=== PATIENT | female | born 1945 | race Two or more races ===

== ENCOUNTER → 2024-03-22 | Outpatient (CLI) | payer OTHER, SELFPAY ==
[2024-03-22 08:51] LABS: Glucose Estimated Average 131 mg/dL (80-131); Hemoglobin A1C 6.2 % Hgb (4.8-6.0)
[2024-03-22 09:07] LABS: Cardiac Risk Estimate 4.2 RATIO (3.7-5.6); Cholesterol 208 mg/dL (132-200); HDL Cholesterol 49 mg/dL (40-60); LDL Cholesterol,Calculated 145 mg/dL (0-130); Triglycerides 70 mg/dL (30-150)
== END | disposition home or self-care (01) ==
LOC: COPL 07:56
PROVIDERS: PCP Family Medicine; Referring Provider Family Medicine; Visit Provider Family Medicine
DX: E11.65 Type 2 diabetes mellitus with hyperglycemia (principal); E78.2 Mixed hyperlipidemia
CPT/HCPCS: 36415; 80061; 83036

== ENCOUNTER → 2024-04-15 | Outpatient (CLI) | payer OTHER, SELFPAY ==
[2024-04-15 10:22] LABS: Alanine Aminotransferase 34 U/L (10-49); Albumin, Serum 4.2 gm/dL (3.4-4.8); Alkaline Phosphatase 63 U/L (46-116); Aspartate Amino Transferase 25 U/L (0-34); Bilirubin,Direct 0.2 mg/dL (0.0-0.3); Bilirubin,Total 0.5 mg/dL (0.3-1.2); Total Protein 6.6 gm/dL (5.7-8.2)
== END | disposition home or self-care (01) ==
LOC: COPL 08:14
PROVIDERS: PCP Family Medicine; Referring Provider Podiatrist Foot & Ankle Surgery; Visit Provider Podiatrist Foot & Ankle Surgery
DX: B35.1 Tinea unguium (principal); B35.3 Tinea pedis
CPT/HCPCS: 36415; 80076

== ENCOUNTER → 2024-06-28 | Outpatient (CLI) | payer OTHER, MEDICAID, SELFPAY ==
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
== END | disposition home or self-care (01) ==
PROVIDERS: PCP Family Medicine; Referring Provider Family Medicine; Visit Provider Family Medicine
DX: R07.89 Other chest pain (principal)
CPT/HCPCS: 71046

== ENCOUNTER → 2024-07-12 | Outpatient (CLI) | payer MEDICARE, MEDICAID, SELFPAY ==
[2024-07-12 10:02] LABS: Glucose Estimated Average 134 mg/dL (80-131); Hemoglobin A1C 6.3 % Hgb (4.8-6.0)
== END | disposition home or self-care (01) ==
LOC: COPL 09:02
PROVIDERS: PCP Family Medicine; Referring Provider Family Medicine; Visit Provider Family Medicine
DX: E11.42 Type 2 diabetes mellitus with diabetic polyneuropathy (principal)
CPT/HCPCS: 36415; 83036

== ENCOUNTER → 2024-09-13 | Outpatient (CLI) | payer MEDICARE, MEDICAID, SELFPAY ==
[2024-09-13 10:28] LABS: Glucose Estimated Average 137 mg/dL (80-131); Hemoglobin A1C 6.4 % Hgb (4.8-6.0)
[2024-09-13 10:34] LABS: Alanine Aminotransferase 42 U/L (10-49); Albumin, Serum 4.4 gm/dL (3.4-4.8); Albumin/Globulin Ratio 1.6 (1.2-2.2); Alkaline Phosphatase 63 U/L (46-116); Anion Gap 9 (7-16); Aspartate Amino Transferase 35 U/L (0-34); BUN/Creatinine Ratio 18 Ratio (12-20); Bilirubin,Total 0.6 mg/dL (0.3-1.2); Blood Urea Nitrogen 22 mg/dL (9-23); Calcium 10.3 mg/dL (8.3-10.6); Calcium (Corrected) 10.3 mg/dL (8.5-10.1); Carbon Dioxide 29.3 mMol/L (20.0-31.0); Cardiac Risk Estimate 3.6 RATIO (3.7-5.6); Chloride 102 mMol/L (98-107); Cholesterol 109 mg/dL (132-200); Creatinine (Component) 1.2 mg/dL (0.6-1.3); Globulin 2.7 gm/dL (2.3-3.5); Glucose 130 mg/dL (74-106); HDL Cholesterol 30 mg/dL (40-60); LDL Cholesterol,Calculated 33 mg/dL (0-130); Osmolality,Calculated 284 (275-295); Potassium 4.1 mMol/L (3.4-5.1); Sodium 140 mMol/L (136-145); Total Protein 7.1 gm/dL (5.7-8.2); Triglycerides 230 mg/dL (30-150); eGFR 46 See Note
== END | disposition home or self-care (01) ==
LOC: COPL 09:03
PROVIDERS: PCP Family Medicine; Referring Provider Family Medicine; Visit Provider Family Medicine
DX: E11.65 Type 2 diabetes mellitus with hyperglycemia (principal); E78.2 Mixed hyperlipidemia
CPT/HCPCS: 36415; 80053; 80061; 83036

== ENCOUNTER 2024-09-20 11:39 | Emergency (ER) | payer OTHER, MEDICAID, SELFPAY ==
[2024-09-20 11:55] VITALS: BP 146/77; PULSE 78; RESP 16; TEMP 37.3; O2SAT 96; BMI 33.6
--- NOTE | 2024-09-20 12:22 | PD.EDSKIN ---
ED Skin Abcess FB-RME/HPI General Chief complaint: Skin/Abscess/Foreign Body Stated complaint: 3 days abscess by vagina Time Seen by Provider: 09/20/24 12:13 Arrival date/time: 09/20/24 11:39 This is a 78-year-old female that is brought in by family member with complaints of possible abscess to the outside of vaginal area. Patient states she has had a small lesion there. Patient states that she started noticing 3 days ago that it started draining. Patient denies any fever or chills. Patient denies any other complaints. Related Data Home Medications ?Medication ?Instructions ?Recorded ?Confirmed gabapentin 300 mg capsule 300 mg PO QDAY 04/07/23 04/07/23 gemfibrozil 600 mg tablet 600 mg PO BID 04/07/23 04/07/23 hydrochlorothiazide 25 mg tablet 25 mg PO QDAY 04/07/23 04/07/23 loratadine 10 mg tablet 10 mg PO QDAY 04/07/23 04/07/23 (Allerclear) losartan 50 mg tablet 50 mg PO QDAY 04/07/23 04/07/23 metoprolol succinate 100 mg 100 mg PO QDAY 04/07/23 04/07/23 tablet,extended release 24 hr tizanidine 4 mg tablet 4 mg PO Q8H PRN Muscle Spasm 04/07/23 04/07/23 tramadol 50 mg tablet 50 mg PO QDAY PRN Pain 04/07/23 04/07/23 Previous Rx's ?Medication ?Instructions ?Recorded doxycycline hyclate 100 mg tablet 100 mg PO BID #14 tabs 09/20/24 Allergies Allergy/AdvReac Type Severity Reaction Status Date / Time celecoxib Allergy Mild Nausea/Vomi Verified 09/20/24 11:44 tiing codeine phosphate Allergy Mild Nausea/Vomi Verified 09/20/24 11:44 tiing hydrocodone bit Allergy Mild Nausea/Vomi Verified 09/20/24 11:44 tiing ibuprofen Allergy Mild Hives Verified 09/20/24 11:44 Course Orders Category Date Time Status Doxycycline [Vibramycin] Med 09/20/24 12:29 Once 100 mg PO X1 ONE Ondansetron Odt [Zofran Odt] Med 09/20/24 12:29 Once 4 mg PO X1 ONE Vital Signs Vital signs: Vital Signs Temperature 99.1 F 09/20/24 11:55 Pulse Rate 78 09/20/24 11:55 Respiratory Rate 16 09/20/24 11:55 Blood Pressure 146/77 H 09/20/24 11:55 Pulse Oximetry (%) 96 09/20/24 11:55 Oxygen Delivery Method Room Air 09/20/24 11:55 Skin / Abscess / Foreign Body MDM Narrative MDM Narrative:: Patient has an area on right side of labia majora. area is approx 0.5cmx0.5cm. Mild erythema to the area no fluctuance felt. Patient had toilet paper in the area to help with the draining. Because area is already draining could have been a small abscess. Again no fluctuance felt. No induration felt. Small area had some mild erythema. Will treat with doxycycline. I told patient to use warm compresses to area every 4 hours. Patient is to follow-up with primary provider in 1 to 2 days. Come back to the emergency room if symptoms change or worsen. Medications / Prescriptions Medication administrations:: Medication Administration History Doxycycline Hyclate (Doxycycline 100 Mg Tablet) 100 mg PO X1 ONE Stop: 09/20/24 12:30 Ondansetron HCl (Ondansetron Odt 4 Mg Tabrap) 4 mg PO X1 ONE; Protocol Stop: 09/20/24 12:30 Discharge Plan Plan Patient Disposition: HOME (Self Care) Patient condition on transfer: Stable Prescriptions/Referrals Prescriptions/Med Rec: New doxycycline hyclate 100 mg tablet 100 mg PO BID Qty: 14 0RF No Action losartan 50 mg tablet 50 mg PO QDAY Patient Comments: TAKE 1 TABLET BY MOUTH EVERY DAY tizanidine 4 mg Tablet 4 mg PO Q8H PRN (Reason: Muscle Spasm) metoprolol succinate 100 mg tablet extended release 24 hr 100 mg PO QDAY Patient Comments: TAKE 1 TABLET BY MOUTH EVERY DAY tramadol 50 mg tablet 50 mg PO QDAY PRN (Reason: Pain) Patient Comments: TAKE 1 TABLET BY MOUTH EVERY 6 HOURS NEEDED gemfibrozil 600 mg tablet 600 mg PO BID Patient Comments: TAKE 1 TABLET BY MOUTH TWICE A DAY gabapentin 300 mg capsule 300 mg PO QDAY Patient Comments: TAKE 1 CAPSULE BY MOUTH THREE TIMES A DAY hydrochlorothiazide 25 mg tablet 25 mg PO QDAY Patient Comments: TAKE 1 TABLET BY MOUTH EVERY DAY loratadine [Allerclear] 10 mg Tablet 10 mg PO QDAY Problem List Clinical Impression: Cellulitis Patient/Caregiver Discharge Instructions Discharge Activity: activity as tolerated Education Materials: ED Cellulitis Additional Instructions: [place] un lance con jauregui medico de cabecera en las proximas 24-48 horas. Regrese a la kevin de emergencias si hay evidencia de que los signos o sintomas empeoran. Print Language: Tunisian Stand Alone Forms: [facility] Award Info., Patient Portal Info Letter PA/[employer] Supervising Physician PA/[employer] Supervising Physician: [email or web address]
[2024-09-20] MEDS: DOXYCYCLINE 100 MG TABLET PO (12:37)
[2024-09-20] MEDS: ONDANSETRON ODT 4 MG TABRAP PO (12:37)
== END 2024-09-20 12:38 | disposition home or self-care (01) ==
PROVIDERS: Emergency Provider Family Medicine; PCP Family Medicine
DX: N76.2 Acute vulvitis (principal)
CPT/HCPCS: 99282; Q0162; A9270

== ENCOUNTER → 2024-10-09 | Outpatient (CLI) | payer MEDICARE, MEDICAID, SELFPAY ==
--- NOTE | 2024-10-09 14:00 | XR_ITS ---
Examination: Screening digital mammography, bilateral Computer aided detection 3-D breast Tomosynthesis, bilateral Date and time of exam: October 09, 2024 1317 hours Compared to mammograms dating to August 06, 2014 Indication: Screening Technique: Nonmagnified MLO, CC views of the breasts to been obtained, reconstructed from 3-D Tomosynthesis images. R2 computer aided detection program utilized for evaluation of suspicious masses and/or abnormal calcifications. 3-D Tomosynthesis images obtained. Findings: The breasts are heterogeneously dense, which may obscure small masses The breast architecture is nodular although definite suspicious masses are not depicted Benign calcifications Impression: BI-RADS category II: Benign Findings. Recommend 1 year follow-up mammogram. Given the heterogeneously dense nodular breast architecture, recommend baseline bilateral breast sonography follow-up
== END | disposition home or self-care (01) ==
LOC: CDIM 13:10
PROVIDERS: Referring Provider Family Medicine; Visit Provider Family Medicine
DX: Z12.31 Encounter for screening mammogram for malignant neoplasm of breast (principal); R92.323 Mammographic fibroglandular density, bilateral breasts; N63.20 Unspecified lump in the left breast, unspecified quadrant; N63.10 Unspecified lump in the right breast, unspecified quadrant
CPT/HCPCS: 77063; 77067